=== PATIENT | female | born 1935 | race Asian ===

== ENCOUNTER → 2016-09-07 | Outpatient (CLI) | payer OTHER ==
[~2016-09-07] MED LIST: AUGMENTIN 875875 MG PO; CALCIUM PO; NORCO 5-325 TA1 EACH PO; PRINZIDE 20-121 EACH PO; SYNTHROID88 MCG PO; VITAMIN D1000 UNI1 PO
== END ==
LOC: RAD 08:45
DX: Z12.31 Encounter for screening mammogram for malignant neoplasm of breast (principal)

== ENCOUNTER 2017-06-03 16:59 | Emergency (ER) | payer OTHER ==
[~2017-06-03] VITALS: Ht 154.9 cm; Wt 53.5 kg
[2017-06-03 17:40] LABS: ABSOLUTE NEUTROPHILS 5.1 thou/uL (1.4-8.2); BASOPHILS 0.1 % (0.0-2.0); EOSINOPHILS 0.3 % (0.0-3.0); HEMATOCRIT 44.6 % (37.0-47.0); LYMPHOCYTES 13.7 % (24.0-44.0); MCH 30.2 pg (26.0-34.0); MCHC 33.7 g/dL (28.0-37.0); MCV 89.6 fL (80.0-100.0); MONOCYTES 5.3 % (1.0-8.0); PLATELET COUNT 154 thou/uL (150-400); POLYS 80.6 % (36.0-66.0); RBC 4.97 mil/uL (4.20-5.00); RDW 13.3 % (10.5-14.5); WBC 6.3 thou/uL (4.0-11.0)
[2017-06-03 17:45] LABS: CALCIUM 8.9 mg/dL (8.5-10.1); CREATININE 1.1 mg/dL (0.6-1.0); POTASSIUM 3.4 mmol/L (3.5-5.1)
[2017-06-03 17:51] LABS: ALBUMIN 3.1 g/dL (3.4-5.0); TOTAL BILIRUBIN 0.4 mg/dL (<0.1-1.0)
[2017-06-03 19:10] LABS: URINE BILIRUBIN NEGATIVE (Negative); URINE BLOOD NEGATIVE (Negative); URINE CLARITY CLEAR; URINE COLOR YELLOW; URINE GLUCOSE-RANDOM* NEGATIVE (Negative); URINE KETONES NEGATIVE (Negative); URINE LEUKOCYTES-REFLEX NEGATIVE (Negative); URINE NITRITE-REFLEX NEGATIVE (Negative); URINE PROTEIN (DIPSTICK) 2+ (Negative); URINE SPECIFIC GRAVITY 1.025 (1.005-1.035); URINE UROBILINOGEN 0.2 E.U./dl (0.2-1.0)
[2017-06-03 19:21] LABS: BACTERIA-REFLEX 1-9 Few /HPF (None Seen); CRYSTALS None Seen /LPF (None Seen); FINE GRANULAR CASTS 4-10 Moderate /LPF (None Seen); MUCUS 0-3 Light strn/LPF (None Seen); SQUAMOUS 0-3 Few /LPF (0-3); URINE RBC None Seen /HPF (0-2); URINE WBC-REFLEX 0-5 Rare /HPF (0-5)
[2017-06-03] MEDS ORDERED: AZITHROMYCIN 2250 MG PO (20:16)
[2017-06-03 21:06] VITALS: BP 132/68
== END 2017-06-03 21:59 | disposition home or self-care (01) ==
LOC: ER 16:59
PROVIDERS: Emergency Medicine
DX: J18.8 Other pneumonia, unspecified organism (principal); I10 Essential (primary) hypertension; E89.0 Postprocedural hypothyroidism; Z88.6 Allergy status to analgesic agent

== ENCOUNTER → 2019-08-01 | Outpatient (CLI) | payer OTHER ==
[~2019-08-01] MED LIST changes: +AZITHROMYCIN 2250 MG PO
== END ==
LOC: BC 14:32
DX: Z12.31 Encounter for screening mammogram for malignant neoplasm of breast (principal)